=== PATIENT | female | born 1950 ===

== ENCOUNTER 2018-09-05 22:43 | Emergency (ER) | payer MEDICARE ==
[2018-09-05 22:44] VITALS: BMI 31.8
[2018-09-05] MEDS ORDERED: Labetalol 25mg/5ml Syringe IV STA (23:17)
[2018-09-05 23:41] LABS: BASO # 0.1 K/uL (0.0-0.2); EOS # 0.2 K/uL (0.0-0.7); EOS % 2.1 % (0.0-4.0); HEMOGLOBIN 12.8 g/dL (11.0-16.0); LYMPH # 2.4 K/uL (1.0-4.3); LYMPH % 26.6 % (20.0-40.0); MEAN CELL VOLUME 88.8 fL (81.0-99.0); MEAN CORPUSCULAR HEMOGLOBIN 30.3 pg (27.0-31.0); MEAN CORPUSCULAR HGB CONC 34.1 g/dL (33.0-37.0); MEAN PLATELET VOLUME 7.9 fL (7.2-11.7); MONO # 0.9 K/uL (0.0-0.8); MONO % 9.9 % (0.0-10.0); NEUT # 5.4 K/uL (1.8-7.0); NEUT % 60.4 % (50.0-75.0); RBC 4.24 Mil/uL (3.80-5.20); RED CELL DISTRIBUTION WIDTH 13.7 % (11.5-14.5)
--- NOTE | 2018-09-05 23:45 | C.PDOC ---
History Of Present Illness 67 year old female presents to the ED complaining of headache and dizziness. Reports she was not feeling good today and her blood pressure was high which prompted the ED visit. Denies any vomiting, nausea, cough, fever, chills, or any other symptoms. Time Seen by Provider: 09/05/18 22:58 Chief Complaint (Nursing): High Blood Pressure History Per: Patient History/Exam Limitations: no limitations Onset/Duration Of Symptoms: Hrs Current Symptoms Are (Timing): Still Present Associated Symptoms: Dizziness, Headache. denies: Chest Pain, Blurred Vision Past Medical History Reviewed: Historical Data, Nursing Documentation, Vital Signs Vital Signs: Last Vital Signs Temp 97.9 F 09/05/18 22:48 Pulse 70 09/05/18 22:48 Resp 16 09/05/18 22:48 BP 153/59 H 09/05/18 23:39 Pulse Ox 98 09/05/18 22:48 - Medical History PMH: HTN Denies: Chronic Kidney Disease Surgical History: No Surg Hx Family History: States: No Known Family Hx - Social History Hx Alcohol Use: No Hx Substance Use: No Review Of Systems Except As Marked, All Systems Reviewed And Found Negative. Constitutional: Negative for: Fever, Chills Respiratory: Negative for: Cough Gastrointestinal: Negative for: Nausea, Vomiting Neurological: Positive for: Headache, Dizziness Physical Exam - Physical Exam Appears: Non-toxic Skin: Warm, Dry Head: Normacephalic Eye(s): bilateral: Normal Inspection Nose: Normal Oral Mucosa: Moist Neck: Normal ROM, Supple Chest: Symmetrical Cardiovascular: Rhythm Regular Respiratory: Normal Breath Sounds, No Rales, No Rhonchi, No Wheezing Extremity: Normal ROM Neurological/Psych: Oriented x3, Normal Speech Gait: Steady ED Course And Treatment - Laboratory Results Result Diagrams: 09/05/18 23:36 09/05/18 23:36 ECG: Viewed By Pr ECG Rhythm: Sinus Rhythm ECG Interpretation: No Acute Changes Interpretation Of ECG: Q at III and AVF Rate From EC O2 Sat by Pulse Oximetry: 98 (RA) Pulse Ox Interpretation: Normal - Radiology CXR: Interpreted by Me CXR Interpretation: Yes: No Acute Disease - CT Scan/US head CT Other Rad Studies (CT/US): Read By Radiologist, Radiology Report Reviewed CT/US Interpretation: Name:ROSALIO CROSS Exam Date:Sep 05, 2018 11:51:08 PM EST. Modality Type:CT\SR. Description:CT - BRAIN. Gender:F Laterality:Not applicable. :50 Referring Physician:Kaylyn Grullon ([facility]). EXAM: CT Head without Intravenous Contrast. CLINICAL HISTORY: Hbp and dizziness. TECHNIQUE: Axial computed tomography images of the head/brain without intravenous contrast. 0.00 mGy-cm. COMPARISON: None provided. FINDINGS: BRAIN. 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 VENTRICLES: There is generalized parenchymal atrophy noted as demonstrated by symmetrical dilatation of ventricles and sulci. ORBITS: The orbits are unremarkable. SINUSES AND MASTOIDS: The paranasal sinuses and mastoid air cells are clear. BONES: No fracture. SOFT TISSUES: Unremarkable. MISCELLANEOUS: No acute intracranial pathology. IMPRESSION: 1. There is generalized parenchymal atrophy noted as demonstrated by symmetrical dilatation of ventricles and sulci. 2. 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 3. No acute intracranial pathology. . Electronically signed on Sep 06, 2018 12:33:50 AM EST by: Magdi Mosher M.D., MARCEL Certified By [facility] & [facility]. Fellowship Trained MRI and CT Specialist Progress Note: CT head, EKG, and CXR ordered and reviewed. Patient given Tranda te 20mg IV. On re-evaluation patient feels better, BP is down and she is stable to be d/c home with PMD and Development Coach follow up. Disposition - Disposition Disposition: HOME/ ROUTINE Disposition Time: 01:21 Condition: IMPROVED Additional Instructions: Follow up with your PMD and Development Coach within 1-2 days. Return to Ed if feel worse. 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 - Scribe Statement The provider has reviewed the documentation as recorded by the Uzielibjake Silveira All medical record entries made by the Uzielibjake were at my direction and personally dictated by me. I have reviewed the chart and agree that the record accurately reflects my personal performance of the history, physical exam, medical decision making, and the department course for this patient. I have also personally directed, reviewed, and agree with the discharge instructions and disposition.
[2018-09-05 23:49] LABS: INR 1.1; PROTHROMBIN TIME 11.6 SECONDS (9.7-12.2)
[2018-09-05 23:50] LABS: SQUAMOUS EPITHIAL 1 /hpf (0-5); URINE BILIRUBIN NEGATIVE (NEGATIVE); URINE BLOOD NEGATIVE (NEGATIVE); URINE CLARITY Clear (Clear); URINE COLOR Colorless (YELLOW); URINE GLUCOSE (UA) NORMAL (Normal); URINE LEUKOCYTE ESTERASE NEG Leu/uL (Negative); URINE PROTEIN NEGATIVE (NEGATIVE); URINE UROBILINOGEN NORMAL mg/dL (0.2-1.0)
[2018-09-05 23:53] LABS: ALB/GLOB RATIO 1.3 (1.0-2.1); ALBUMIN 4.3 g/dL (3.5-5.0); ALT/SGPT 40 U/L (9-52); AST/SGOT 47 U/L (14-36); BLOOD UREA NITROGEN 17 mg/dL (7-17); CALCIUM 9.2 mg/dl (8.6-10.4); GFR NON-AFRICAN AMERICAN > 60
[2018-09-06 01:44] VITALS: BP 157/74; PULSE 76; RESP 20; TEMP 98
[2018-09-06 02:13] VITALS: O2SAT 98
--- NOTE | 2018-09-06 10:56 | CT ---
Date of service: 09/05/2018 PROCEDURE: CT HEAD WITHOUT CONTRAST. HISTORY: elevated BP, dizzy COMPARISON: The the TECHNIQUE: Axial computed tomography images were obtained through the head/brain without intravenous contrast. Radiation dose: Total exam DLP = 1066.35 mGy-cm. This CT exam was performed using one or more of the following dose reduction techniques: Automated exposure control, adjustment of the mA and/or kV according to patient size, and/or use of iterative reconstruction technique. FINDINGS: HEMORRHAGE: No intracranial hemorrhage. BRAIN: Suspect minimal chronic periventricular white matter ischemic changes Mild to moderate generalized volume loss. Mild vascular calcifications both carotid siphons. VENTRICLES: No obstructive hydrocephalus. CALVARIUM: Unremarkable. PARANASAL SINUSES: Unremarkable as visualized. No significant inflammatory changes. MASTOID AIR CELLS: Unremarkable as visualized. No inflammatory changes. OTHER FINDINGS: None. IMPRESSION: No acute intracranial hemorrhage. Suspect minimal chronic periventricular white matter ischemic changes. Mild moderate generalized volume loss.
--- NOTE | 2018-09-06 15:18 | RAD ---
Date of service: 09/05/2018 HISTORY: elevated BP, dizzy COMPARISON: None available. FINDINGS: LUNGS: Poor inspiration with low lung volumes, crowded bronchovascular markings and mild bibasilar atelectasis. PLEURA: No significant pleural effusion identified, no pneumothorax apparent. CARDIOVASCULAR: Mild aortic atherosclerotic calcification present. Mild cardiomegaly.. No pulmonary vascular congestion. OSSEOUS STRUCTURES: No significant abnormalities. VISUALIZED UPPER ABDOMEN: Normal. OTHER FINDINGS: None. IMPRESSION: The poor inspiration with low lung volumes, crowded bronchovascular markings and mild bibasilar atelectasis.
== END 2018-09-06 01:44 | disposition home or self-care (01) ==
LOC: C.ER 22:43
DX: I10 Essential (primary) hypertension (principal)